=== PATIENT | male | born 1980 | race Caucasian/White ===

== ENCOUNTER 2022-07-05 20:37 | Outpatient (CLI) | payer SELFPAY | END 2022-07-05 20:38 | disposition home or self-care (01) | PROVIDERS: Visit Provider Family Medicine | DX: I46.9 Cardiac arrest, cause unspecified (principal) | CPT/HCPCS: A0425; A0433 ==

== ENCOUNTER 2022-07-05 21:24 | Emergency (ER) | payer SELFPAY ==
[2022-07-05] VITALS (8 sets, daily range): BP systolic 93–136; BP diastolic 59–84; PULSE 77–112; RESP 13; TEMP 35.9; O2SAT 92–99
--- NOTE | 2022-07-05 21:29 | CRLHL7_ITS ---
For Patients: As a result of the Century Cures Act, medical imaging exams and procedure reports are released immediately into your electronic medical record. You may view this report before your referring provider. If you have questions, please contact your health care provider. HISTORY: Status post cardiac arrest. COMPARISON: None available FINDINGS: A portable supine AP view of the chest was obtained at 21 32 hours. A nasogastric tube has its tip in the right lower lobe. It should be completely removed and replaced, with follow-up radiograph. An endotracheal tube has its tip located 1 centimeter above the thoracic inlet, and 6 centimeters above the talib. Recommend advancing [address] it midway between the thoracic inlet and talib. The lungs are clear. No focal or diffuse infiltrates are present. The heart is normal in size. The mediastinum is normal in appearance. The osseous structures are normal in appearance for the patient`s age. I discussed the findings with Dr. Santiago at 2215 hours on 07/05/2022. IMPRESSION: Nasogastric tube tip in the right lower lobe. The tube should be entirely removed and replaced with follow-up radiograph. Endotracheal tube tip 1 centimeter above the thoracic inlet. Recommend advancing at [address] the tip midway between the thoracic inlet and talib. No sign of any pulmonary infiltrate. Dictated by Efrain Richey MD @ 07/05/2022 10:19:21 PM (Electronically Signed)
[2022-07-05] MEDS: fentaNYL 100 MCG/2 ML inj 50 MCG IVP (21:30)
[2022-07-05] MEDS: 0.9 % SODIUM CHLORIDE 500 ML 500 ML IV (21:40)
--- NOTE | 2022-07-05 21:49 | ED_ITS ---
HPI - General Adult General Chief complaint: Cardiac Arrest/CPR Stated complaint: Cardiac Arrest Time Seen by Provider: 07/05/22 21:55 History of Present Illness HPI narrative: 41-year-old man brought by EMS after apparent cardiac arrest. Noted history of Marfan's. Apparently was watching TV when slumped forward. Fell forward on his head. Family started compressions. Police arrived to take over within 15 minutes and the ED advised shocks twice. EMS arrived to find Mr. Brunson in normal sinus rhythm. They RSId him and he arrives intubated. Narcan was also given. Blood sugar 181. Pressures were in the 70 systolic at 1 point was initiated on epinephrine drip. Speaking with family later was apparently in usual state of health prior to this event. Related Data Allergies Allergy/AdvReac Type Severity Reaction Status Date / Time amoxicillin Allergy Mild Nausea Verified 07/06/22 02:08 Review of Systems Status of ROS: Reports: unobtainable due to medical condition [facility] Medical History (Updated 07/20/22 @ 00:00 by ) Marfan syndrome Social History Smoking Status: Unknown if ever smoked Exam Narrative: Exam Narrative: Arrives intubated as noted. Paralyzed. Head without evidence of significant trauma. A little erythema on the forehead. Dentition intact Ears appear clear of fluid. Pupils are nearly 3 mm reactive to light accommodation but a little bit slow/sluggish. Lungs breath sounds bilaterally. Equal chest rise. Cardiovascular in a regular rhythm. Elevated rate to tachycardic. Abdomen is soft flat. Extremities are well perfused. Const: Documenting provider has reviewed patient's vital signs: yes Course Vital Signs Vital signs: Initial Vital Signs Pulse Rate 105 H 07/05/22 21:24 Blood Pressure 107/68 07/05/22 21:24 Blood Pressure Mean 81 07/05/22 21:24 Blood Pressure Position Supine 07/05/22 21:24 Oxygen Delivery Method 07/05/22 21:24 Vital Signs Pulse Rate 105 H 07/05/22 21:24 Blood Pressure 107/68 07/05/22 21:24 Oxygen Delivery Method 07/05/22 21:24 Temperature 96.6 F L 07/05/22 21:30 Pulse Rate 105 H 07/05/22 22:23 Respiratory Rate 13 07/05/22 22:23 Blood Pressure 98/62 07/05/22 22:23 Pulse Oximetry 99 07/05/22 22:23 Oxygen Delivery Method 07/05/22 22:23 Medical Decision Making MDM Narrative Medical decision making narrative: Tearing a little bit. Ordered for fentanyl. Versed for sedation. Request was made for further paralysis. Understanding that 2nd dosing of Versed had also been given I did order re-dosing of rocuronium. As we are preparing Mr. Brunson for transport Chest x-ray showed what looked to be a right main stemmed intubation. Was anticipating pulling back on the ET tube however over-read by Radiology confirm this is another tube. This looked ultimately to have been the OG. This was removed and replaced. Did speak with electronics computer mechanic at [facility] thankfully excepting of admission. Lab Data Lab results reviewed: Yes I reviewed the patient's lab results Labs: Lab Results 07/05/22 07/05/22 07/05/22 Range/Units 21:45 21:45 21:45 WBC 16.37 H (4.50-11.00) K/uL RBC 5.13 (4.30-5.90) m/uL Hgb 15.9 (13.5-17.5) gm/dL Hct 47.2 (37.0-53.0) % MCV 92 (80-100) fL MCH 31 (26-34) pg MCHC 34 (32-36) gm/dL RDW Coeff of Rosa 11.7 (11.5-15.5) % Plt Count 263 (140-440) K/uL Neut % (Auto) 79.7 H (42.0-72.0) % Lymph % (Auto) 13.6 L (20-44) % [place] % (Auto) 4.5 (0.0-11.0) % Eos % (Auto) 1.1 (0.0-7.0) % Baso % (Auto) 0.2 (0.0-3.0) % Neut # (Auto) 13.00 H (1.7-7.0) K/uL Lymph # (Auto) 2.20 (0.90-2.90) K/uL [place] # (Auto) 0.70 (0.00-0.90) K/UL Eos # (Auto) 0.20 (0.00-0.50) K/uL Baso # (Auto) 0.00 (0.00-0.30) K/uL Abs Immat Gran (auto) 0.10 (0.00-0.30) K/uL Imm/Tot Granulo (auto) 0.9 % VBG pH (7.32-7.43) VBG pCO2 (40-50) mmHG VBG pO2 (25-47) mmHG VBG HCO3 (21-28) mmol/L Sodium 139 (135-149) mmol/L Potassium 3.4 L (3.6-5.1) mmol/L Chloride 104 (96-114) mmol/L Carbon Dioxide 24 (20-32) mmol/L BUN 14 (5-24) mg/dL Creatinine 1.0 (0.5-1.5) mg/dL Estimated GFR 96 ml/min Glucose 168 H (60-115) mg/dL Calcium 8.4 (8.4-10.6) mg/dL Magnesium 2.3 (1.5-2.6) mg/dL Troponin I 0.08 H* (0.01-0.04) ng/mL C-Reactive Protein < 0.5 L (0.5-1.0) mg/dL NT-Pro-B Natriuret Pep 24 (0-125) PG/mL Urine Opiates Screen (Negative) Ur Oxycodone Screen (Negative) Urine Methadone Screen (Negative) Ur Propoxyphene Screen (Negative) Ur Barbiturates Screen (Negative) U Tricyclic Antidepress (Negative) Ur Phencyclidine Scrn (Negative) Ur Amphetamines Screen (Negative) U Methamphetamines Scrn (Negative) U Benzodiazepines Scrn (Negative) Urine Cocaine Screen (Negative) U Marijuana (THC) Screen (Negative) Ur Drug Screen Comment Ethyl Alcohol < 0.01 L (0.01-0.03) % POC Troponin I (0.01-0.04) ng/ml 07/05/22 07/05/22 07/05/22 Range/Units 21:45 21:45 22:00 WBC (4.50-11.00) K/uL RBC (4.30-5.90) m/uL Hgb (13.5-17.5) gm/dL Hct (37.0-53.0) % MCV (80-100) fL MCH (26-34) pg MCHC (32-36) gm/dL RDW Coeff of Rosa (11.5-15.5) % Plt Count (140-440) K/uL Neut % (Auto) (42.0-72.0) % Lymph % (Auto) (20-44) % [place] % (Auto) (0.0-11.0) % Eos % (Auto) (0.0-7.0) % Baso % (Auto) (0.0-3.0) % Neut # (Auto) (1.7-7.0) K/uL Lymph # (Auto) (0.90-2.90) K/uL [place] # (Auto) (0.00-0.90) K/UL Eos # (Auto) (0.00-0.50) K/uL Baso # (Auto) (0.00-0.30) K/uL Abs Immat Gran (auto) (0.00-0.30) K/uL Imm/Tot Granulo (auto) % VBG pH 7.306 L (7.32-7.43) VBG pCO2 52 H (40-50) mmHG VBG pO2 46.3 (25-47) mmHG VBG HCO3 26 (21-28) mmol/L Sodium (135-149) mmol/L Potassium (3.6-5.1) mmol/L Chloride (96-114) mmol/L Carbon Dioxide (20-32) mmol/L BUN (5-24) mg/dL Creatinine (0.5-1.5) mg/dL Estimated GFR ml/min Glucose (60-115) mg/dL Calcium (8.4-10.6) mg/dL Magnesium (1.5-2.6) mg/dL Troponin I (0.01-0.04) ng/mL C-Reactive Protein (0.5-1.0) mg/dL NT-Pro-B Natriuret Pep (0-125) PG/mL Urine Opiates Screen Negative (Negative) Ur Oxycodone Screen Negative (Negative) Urine Methadone Screen Negative (Negative) Ur Propoxyphene Screen Negative (Negative) Ur Barbiturates Screen Negative (Negative) U Tricyclic Antidepress Negative (Negative) Ur Phencyclidine Scrn Negative (Negative) Ur Amphetamines Screen Negative (Negative) U Methamphetamines Scrn Negative (Negative) U Benzodiazepines Scrn Negative (Negative) Urine Cocaine Screen Negative (Negative) U Marijuana (THC) Screen Negative (Negative) Ur Drug Screen Comment See Note Ethyl Alcohol (0.01-0.03) % POC Troponin I 0.05 H (0.01-0.04) ng/ml ECG Data Attestation: I personally reviewed and interpreted this ECG as follows: (Normal sinus rhythm rate of 96. Looks like there might be an intraventricular block.) Critical Care Time Critical Care Time Critical Care Time: Yes Attestation: The patient required my highest level preparedness to intervene emergently and I personally spent this critical care time directly and personally managing the patient. This critical care time included: Obtaining a history; Examining the patient; Pulse oximetry; Ordering and reviewing of studies; Arranging urgent treatment with development of a management plan; Evaluation of patients response to treatment; Frequent reassessment discussions with other providers. This critical care time was performed to assess and manage the high probability of imminent life-threatening deterioration that could result in multiorgan failure. It was exclusive of separate billable procedures and treating other patients and teaching time. Total Critical Care Time in Minutes: 50 Discharge Plan Discharge Clinical Impression: Cardiac arrest Patient Disposition: [facility] Discharge Location: [facility] Condition: Stable Stand Alone Forms: [employer] Info Instructions
[2022-07-05 21:51] LABS: HCO3 VBG 26 mmol/L (21-28); PCO2 VBG 52 mmHG (40-50); PO2 VBG 46.3 mmHG (25-47); pH VBG 7.306 (7.32-7.43)
[2022-07-05 21:57] LABS: Basophils Percent Auto 0.2 % (0.0-3.0); Eosinophils Percent Auto 1.1 % (0.0-7.0); Hematocrit 47.2 % (37.0-53.0); Hemoglobin* 15.9 gm/dL (13.5-17.5); Immature Granulocytes Pct Auto 0.9 %; Lymphocytes Percent Auto 13.6 % (20-44); Mean Corpuscular HGB Conc 34 gm/dL (32-36); Mean Corpuscular Hemoglobin 31 pg (26-34); Mean Corpuscular Volume 92 fL (80-100); Monocytes Percent Auto 4.5 % (0.0-11.0); Neutrophils Percent Auto 79.7 % (42.0-72.0); Platelet Count* 263 K/uL (140-440); RDW Coefficient of Variation % 11.7 % (11.5-15.5); Red Blood Count 5.13 m/uL (4.30-5.90); White Blood Count* 16.37 K/uL (4.50-11.00)
[2022-07-05] MEDS: MIDAZOLAM HCL 1 MG/ML inj 2 MG IVP ×2 (21:57→22:13)
[2022-07-05 22:05] LABS: Slide Review Reflex No
[2022-07-05 22:08] LABS: Chloride* 104 mmol/L (96-114); Sodium* 139 mmol/L (135-149)
[2022-07-05 22:09] LABS: Potassium* 3.4 mmol/L (3.6-5.1)
[2022-07-05 22:11] LABS: Estimated Glomerular Filt Rate 96 ml/min
[2022-07-05 22:12] LABS: Blood Urea Nitrogen* 14 mg/dL (5-24); Calcium* 8.4 mg/dL (8.4-10.6); Carbon Dioxide* 24 mmol/L (20-32); Glucose* 168 mg/dL (60-115); Magnesium* 2.3 mg/dL (1.5-2.6)
[2022-07-05 22:13] LABS: Troponin, Point-of-Care* 0.05 ng/ml (0.01-0.04)
[2022-07-05 22:15] LABS: C Reactive Protein* < 0.5 mg/dL (0.5-1.0); Ethanol* < 0.01 % (0.01-0.03)
[2022-07-05 22:21] LABS: NT Pro B Type NatriureticPept* 24 PG/mL (0-125)
[2022-07-05 22:25] LABS: Troponin I* 0.08 ng/mL (0.01-0.04)
[2022-07-05 22:27] LABS: Amphetamine Screen Urine Negative (Negative); Barbiturate Screen Urine Negative (Negative); Benzodiazepines Screen Urine Negative (Negative); Cannabinoid Screen Urine Negative (Negative); Cocaine Screen Urine Negative (Negative); Methadone Screen Urine Negative (Negative); Methamphetamines Screen Urine Negative (Negative); Opiate Screen Urine Negative (Negative); Oxycodone Screen Urine Negative (Negative); Phencyclidine Screen Urine Negative (Negative); Tricyclic Antidepressant Urine Negative (Negative)
[2022-07-05] MEDS: ROCURONIUM BROMIDE 10 MG/ML inj 85 MG IV (22:30)
--- NOTE | 2022-07-06 03:16 | ED.NURSE ---
Addendum entered by Hadley Zimmerman RN 07/06/22 03:36: See critical care record Original Note: Critical Care note Sudden onset at home, 15 minute estimated down time. Law enforcement first on scene, 2 shocks delivered, ROSC established. Intubated on scene upon arrival by EMS, ketamine 200mg at 2055, rocuronium 85 at 2056, Epi gtt at 2106, Narcan at 2107, fentanyl 50mcg at 2116, Ketamine 300 mg at 2042. 2139 Blood Glucose 181 2145 Raymond cath inserted 2219 OG tube removed per Dr. Holcomb 2225 pt transferred to [facility]
== END 2022-07-05 22:25 | disposition short-term general hospital (02) ==
PROVIDERS: Emergency Provider Family Medicine
DX: I46.9 Cardiac arrest, cause unspecified (principal)
CPT/HCPCS: 36415; 71045; 80048; 80306; 82077; 82803; 82962; 83735; 83880; 84484; 85025; 86140; 87635; 93005; 94761; 99284; 99291; J0171; J2250; J3010; J7050; J7120

== ENCOUNTER 2022-07-05 22:12 | Outpatient (CLI) | payer SELFPAY | END 2022-07-05 22:13 | disposition home or self-care (01) | LOC: AMB 07-27 05:23 | PROVIDERS: Visit Provider Family Medicine | DX: I46.9 Cardiac arrest, cause unspecified (principal) | CPT/HCPCS: A0425; A0433 ==

== ENCOUNTER 2025-05-31 04:05 | Emergency (ER) | payer OTHER, SELFPAY ==
--- NOTE | 2025-05-31 04:07 | ED.GENADULT ---
HPI - General Adult General Time Seen by Provider: 04:08 Date Seen: 05/31/25 Chief complaint: Abdominal Pain Stated complaint: right lower abdominal pain Time Seen by Provider: 05/31/25 04:07 Source: patient Mode of arrival: ambulatory Limitations: no limitations History of Present Illness HPI narrative: 44-year-old male with history of Marfan syndrome who comes in today with right lower quadrant abdominal pain. Related Data Home Medications ?Medication ?Instructions ?Recorded ?Confirmed [id number] 250 1 tab PO Q4-6H PRN 05/24/25 05/24/25 mg-250 mg-65 mg tablet (Excedrin Migraine) Previous Rx's ?Medication ?Instructions ?Recorded cyclobenzaprine 10 mg tablet 10 mg PO QHS PRN muscle spasm #7 05/24/25 tabs Allergies Allergy/AdvReac Type Severity Reaction Status Date / Time amoxicillin Allergy Mild Nausea Verified 05/31/25 04:[address] [facility] Medical History (Updated 05/31/25 @ 04:56 by Scott Fleming MD) Impulsive ?R45.87 - Impulsiveness (ICD-10) Memory loss, short term ?R41.3 - Other amnesia (ICD-10) Anoxic brain injury ?G93.1 - Anoxic brain damage, not elsewhere classified (ICD-10) Encephalopathy ?G93.40 - Encephalopathy, unspecified (ICD-10) Acute pulmonary embolism ?I26.99 - Other pulmonary embolism without acute cor pulmonale (ICD-10) Transaminitis ?R74.01 - Elevation of levels of liver transaminase levels (ICD-10) Cardiac arrest ?I46.9 - Cardiac arrest, cause unspecified (ICD-10) Acute respiratory failure with hypoxia ?J96.01 - Acute respiratory failure with hypoxia (ICD-10) Tachycardia ?R00.0 - Tachycardia, unspecified (ICD-10) Aspiration pneumonia ?J69.0 - Pneumonitis due to inhalation of food and vomit (ICD-10) Marfan syndrome ?Q87.40 - Marfan's syndrome, unspecified (ICD-10) Social History Smoking Status: Unknown if ever smoked Do you use any of these nicotine containing products: None Second hand tobacco smoke exposure: No How often do you have a drink containing alcohol: never AUDIT-C Alcohol total score: 0 Non-prescribed substance use: denies use service: No Exam Narrative: Exam Narrative: General: Well-developed and well-nourished, no acute distress, marfanoid appearance Head: Atraumatic and normocephalic Eyes: Pupils are equal reactive, extraocular motions intact, conjunctiva clear ENT: External nose and ears are normal, posterior pharynx without erythema or exudate Neck: No midline cervical tenderness, full spontaneous range of motion the neck, trachea midline, no adenopathy Heart: Regular rate and rhythm no murmurs or thrills Lungs: Clear to auscultation bilaterally without wheezes or crackles Abdomen: Soft, nontender, nondistended with active bowel sounds Musculoskeletal: No tenderness, deformity, or edema Neurologic: Awake, alert, and oriented x3, no gross focal neurologic deficits, cranial nerves intact as tested Psych: Mood and affect are appropriate Skin: No rashes Const: Vital Signs, click to edit/add: Vital Signs - 24 hr 05/31/25 04:08 Temperature 97.6 F Pulse Rate [Left P ulse Oximeter] 81 Respiratory Rate 24 Blood Pressure [Ri ght Upper Arm] 151/90 H Pulse Oximetry 99 Oxygen Delivery Me thod Room Air Course Course ED Course: Reviewed most recent admission June 2022, patient was admitted with cardiac arrest, aspiration pneumonia and acute pulmonary embolism. Patient presents today with right lower quadrant abdominal pain started about an hour prior to coming the emergency department. Has sensation of urinary frequency. Mild nausea, vomiting. No prior abdominal surgeries. On exam here peers uncomfortable, right lower quadrant abdominal tenderness, no CVA tenderness. Consider acute appendicitis, obstruction, mesenteric adenitis, renal colic. No right upper quadrant tenderness to suggest acute cholecystitis. Labs and CT scan are ordered along with Dilaudid and Zofran. Reevaluation(s) Time of Reevaluation #1: 04:45 Reevaluation #1: Labs and bili interpreted by me with normal CBC, urinalysis with blood, few bacteria. Time of Reevaluation #2: 04:52 Reevaluation #2: CT abdomen pelvis independently interpreted by me demonstrates a 5-6 mm UVJ stone with associated mild hydronephrosis and hydroureter. Toradol ordered and anticipate discharge. Basic panel reassuring with creatinine 1.1 which is normal. No evidence for urinary infection Vital Signs Vital signs: Initial Vital Signs Temperature 97.6 F 05/31/25 04:08 Temperature Source Temporal Artery Scan 05/31/25 04:08 Pulse Rate 81 05/31/25 04:08 Respiratory Rate 24 05/31/25 04:08 Blood Pressure 151/90 H 05/31/25 04:08 Blood Pressure Mean 110 H 05/31/25 04:08 Blood Pressure Position Sitting 05/31/25 04:08 Pulse Oximetry 99 05/31/25 04:08 Oxygen Delivery Method Room Air 05/31/25 04:08 Vital Signs Temperature 97.6 F 05/31/25 04:08 Pulse Rate 81 05/31/25 04:08 Respiratory Rate 24 05/31/25 04:08 Blood Pressure 151/90 H 05/31/25 04:08 Pulse Oximetry 99 05/31/25 04:08 Oxygen Delivery Method Room Air 05/31/25 04:08 Temperature 97.6 F 05/31/25 04:08 Pulse Rate 81 05/31/25 04:08 Respiratory Rate 24 05/31/25 04:08 Blood Pressure 151/90 H 05/31/25 04:08 Pulse Oximetry 99 05/31/25 04:08 Oxygen Delivery Method Room Air 05/31/25 04:08 Medications Administered Medications: Generic Name Dose Route Start Last Admin Trade Name Carol PRN Reason Stop Dose Admin Ketorolac Tromethamine 15 mg 05/31/25 04:51 05/31/25 05:00 Ketorolac 15 Mg/Ml Inj IVP 05/31/25 04:52 15 mg ONCE ONE Administration Discontinued Medications Generic Name Dose Route Start Last Admin Trade Name Carol PRN Reason Stop Dose Admin Hydromorphone HCl 0.5 mg 05/31/25 04:16 05/31/25 04:29 Hydromorphone 0.5 Mg/0.5 Ml Inj IVP 05/31/25 04:17 0.5 mg ONCE ONE Administration Ondansetron HCl 4 mg 05/31/25 04:16 05/31/25 04:28 Ondansetron 2 Mg/Ml Inj IVP 05/31/25 04:17 4 mg ONCE ONE Administration Medical Decision Making Lab Data Labs: Lab Results 05/31/25 05/31/25 Range/Units 04:15 04:19 WBC 6.74 (4.50-11.00) K/uL RBC 5.02 (4.30-5.90) m/uL Hgb 15.6 (13.5-17.5) gm/dL Hct 45.8 (37.0-53.0) % MCV 91 (80-100) fL MCH 31 (26-34) pg MCHC 34 (32-36) gm/dL RDW Coeff of Rosa 11.8 (11.5-15.5) % Plt Count 285 (140-440) K/uL Neut % (Auto) 44.5 (42.0-72.0) % Lymph % (Auto) 38.1 (20-44) % [place] % (Auto) 10.2 (0.0-11.0) % Eos % (Auto) 5.5 (0.0-7.0) % Baso % (Auto) 1.0 (0.0-3.0) % Neut # (Auto) 2.99 (1.7-7.0) K/uL Lymph # (Auto) 2.57 (0.90-2.90) K/uL [place] # (Auto) 0.70 (0.00-0.90) K/UL Eos # (Auto) 0.37 (0.00-0.50) K/uL Baso # (Auto) 0.07 (0.00-0.30) K/uL Abs Immat Gran (auto) 0.05 (0.00-0.30) K/uL Imm/Tot Granulo (auto) 0.7 % Sodium 136 (135-149) mmol/L Potassium 4.0 (3.6-5.1) mmol/L Chloride 96 (96-114) mmol/L Carbon Dioxide 28 (20-32) mmol/L Anion Gap 12 (7-15) mEq/L BUN 23 (5-24) mg/dL Creatinine 1.1 (0.5-1.5) mg/dL Estimated GFR 84 ml/min Glucose 111 (60-115) mg/dL Calcium 10.0 (8.4-10.6) mg/dL Magnesium 2.3 (1.5-2.6) mg/dL Urine Color Yellow (Yellow) Urine Appearance Clear (Clear) Urine pH 5.5 (5.0-8.5) Ur Specific [place] 1.025 (1.000-1.030) Urine Protein Trace A (Negative) Urine Glucose (UA) Negative (Negative) Urine Ketones Negative (Negative) Urine Blood 1+ A (Negative) Urine Nitrite Negative (Negative) Urine Bilirubin Negative (Negative) Urine Urobilinogen 0.2 (0.2-1.0) Ur Leukocyte Esterase Negative (Negative) Urine RBC 10-25 A (0-2) Urine WBC 2-5 (0-5) Ur Squamous Epith Cells Few (None-Few) Urine Bacteria Few A (None) Discharge Plan Discharge Clinical Impression: Right distal ureteral calculus Patient Disposition: Home, Self-Care Condition: Stable Instructions: How to Strain Your Urine (ED), Ureteral Stones (ED) Additional Instructions: Tylenol 650 mg every 6 hours alternating every 3 hours with ibuprofen 400 mg every 6 hours for baseline pain management Take Zofran as needed for nausea vomiting. Take oxycodone as needed for pain. Follow-up with urology either at [place] or with [facility] [phone] Activity Level: Activity as Tolerated Discharge Diet: Regular Prescriptions: No Action [id number]-[id number] [Excedrin Migraine] 250-250-65 mg tablet 1 tab PO Q4-6H PRN cyclobenzaprine 10 mg tablet 10 mg PO QHS PRN (Reason: muscle spasm) Qty: 7 0RF Follow Up/Referrals: Provider,Not a Local [Primary Care Provider, Family Practice] Stand Alone Forms: [employer] Info Instructions
[2025-05-31 04:08] VITALS: BP 151/90; PULSE 81; RESP 24; TEMP 36.4; O2SAT 99
--- NOTE | 2025-05-31 04:11 | CRLHL7_ITS ---
For Patients: As a result of the Century Cures Act, medical imaging exams and procedure reports are released immediately into your electronic medical record. You may view this report before your referring provider. If you have questions, please contact your health care provider. INDICATION: Right lower quadrant abdominal pain TECHNIQUE: CT abdomen and pelvis acquired with 76 cc Isovue 370 IV contrast. COMPARISON: None. FINDINGS: Lower chest: Unremarkable. Liver: Unremarkable. Gallbladder and bile ducts: Unremarkable. No stones or inflammation. No biliary dilatation. Pancreas: Unremarkable. Spleen: Unremarkable. Adrenal glands: Unremarkable. Kidneys: Moderate right hydronephrosis and hydroureter. Slightly delayed right nephrogram. No left hydronephrosis or hydroureter. Subcentimeter hypodense lesion in the left kidney, likely cyst. GI tract: No obstruction. No evidence of significant bowel inflammation. Moderate stool burden. Normal appendix. Vasculature: Abdominal aorta is normal in caliber. Mesenteric arteries are patent. Lymph nodes: No lymphadenopathy. Peritoneum/Abdominal Wall: Tiny fat containing umbilical hernia. No free air or significant free fluid. Pelvis: There is a stone in the bladder just past the UVJ measuring 0.6 x 0.5 x 0.4 centimeters (2/114, 64). Bones: Unremarkable for age. IMPRESSION: There is a stone in the bladder just past the UVJ measuring 0.6 x 0.5 x 0.4 centimeters, likely recently passed considering moderate right hydronephrosis and hydroureter. Please note that all CT scans at this facility use dose modulation, iterative reconstruction, and/or weight-based dosing when appropriate to reduce radiation dose to as low as reasonably achievable. Dictated by Rita Ramirez MD @ 05/31/2025 5:06:06 AM (Electronically Signed)
[2025-05-31] MEDS: ONDANSETRON 2 MG/ML inj 4 MG IVP (04:28)
[2025-05-31 04:30] LABS: Appearance Urine Clear (Clear)
[2025-05-31 04:34] LABS: Hematocrit* 45.8 % (37.0-53.0); Hemoglobin* 15.6 gm/dL (13.5-17.5); Immature Granulocytes Abs Auto 0.05 K/uL (0.00-0.30); Immature Granulocytes Pct Auto 0.7 %; Lymphocytes Absolute Auto 2.57 K/uL (0.90-2.90); Mean Corpuscular HGB Conc 34 gm/dL (32-36); Mean Corpuscular Hemoglobin 31 pg (26-34); Mean Corpuscular Volume 91 fL (80-100); RDW Coefficient of Variation % 11.8 % (11.5-15.5); Red Blood Count* 5.02 m/uL (4.30-5.90); White Blood Count* 6.74 K/uL (4.50-11.00)
[2025-05-31 04:38] LABS: Slide Review Reflex No
[2025-05-31 04:43] LABS: Potassium* 4.0 mmol/L (3.6-5.1); Sodium* 136 mmol/L (135-149)
[2025-05-31 04:45] LABS: Blood Urea Nitrogen* 23 mg/dL (5-24); Creatinine* 1.1 mg/dL (0.5-1.5); Estimated Glomerular Filt Rate 84 ml/min
[2025-05-31 04:46] LABS: Calcium* 10.0 mg/dL (8.4-10.6); Carbon Dioxide* 28 mmol/L (20-32); Glucose* 111 mg/dL (60-115)
[2025-05-31 04:56] LABS: Anion Gap 12 mEq/L (7-15); Chloride* 96 mmol/L (96-114)
== END 2025-05-31 05:31 | disposition home or self-care (01) ==
LOC: ED 05:04
PROVIDERS: Emergency Provider Family Medicine
DX: N20.1 Calculus of ureter (principal)
CPT/HCPCS: 36415; 74177; 80048; 81001; 83735; 85025; 87086; 96374; 96375; 99284; J1171; J1885; J2405; Q9967